=== PATIENT | female | born 1945 | race Caucasian/White ===

== ENCOUNTER → 2020-12-26 | Outpatient (CLI) | payer MEDICARE, OTHER | END | disposition home or self-care (01) | LOC: LAB SHORT 17:16 → LAB 17:16 | DX: N39.0 Urinary tract infection, site not specified (principal) | CPT/HCPCS: 87077; 87086; 87186 ==

== ENCOUNTER → 2021-01-05 | Outpatient (CLI) | payer MEDICARE, OTHER ==
[2021-01-05 07:27] LABS: Source, Urine Clean Catch
[2021-01-05 07:48] LABS: Bacteria Not Seen /hpf; Red Blood Cells, Urine Not Seen /hpf (0-2); Squamous Epithelial Cells Few /hpf (Few); White Blood Cells, Urine Not Seen /hpf (0-5)
== END | disposition home or self-care (01) ==
LOC: LAB 07:18 → LAB SHORT 07:18
PROVIDERS: General Practice
DX: N39.0 Urinary tract infection, site not specified (principal)
CPT/HCPCS: 81015; 87086

== ENCOUNTER → 2021-01-15 | Outpatient (CLI) | payer MEDICARE, OTHER ==
[2021-01-17 10:55] LABS: Candida species (DNA Probe) Negative (NEGATIVE); G. vaginalis (DNA Probe) Negative (NEGATIVE); T. vaginalis (DNA Probe) Negative (NEGATIVE)
== END ==
LOC: LAB 16:20 → LAB SHORT 16:20
PROVIDERS: Family Medicine
DX: N76.0 Acute vaginitis (principal); N39.0 Urinary tract infection, site not specified
CPT/HCPCS: 87086; 87480; 87510; 87660

== ENCOUNTER 2022-07-17 08:53 | Observation (INO) | payer MEDICARE, OTHER ==
[~2022-07-17] VITALS: Ht 157.5 cm; Wt 67.8 kg
[2022-07-17 09:21] LABS: BASOPHILS ABSOLUTE AUTO 0.03 K/mm3 (0.00-0.23); BASOPHILS PERCENT AUTO 0 % (0-2); EOSINOPHILS ABSOLUTE AUTO 0.03 K/mm3 (0.00-0.68); EOSINOPHILS PERCENT AUTO 0 % (0-6); Hematocrit 42.9 % (33.0-51.0); IMMATURE GRAN ABSOLUTE AUTO 0.02 K/mm3 (0.00-0.10); IMMATURE GRAN PERCENT AUTO 0 % (0-1); LYMPHOCYTES ABSOLUTE AUTO 0.96 K/mm3 (0.84-5.20); LYMPHOCYTES PERCENT AUTO 13 % (21-46); MONOCYTES ABSOLUTE AUTO 0.42 K/mm3 (0.16-1.47); MONOCYTES PERCENT AUTO 6 % (4-13); Mean Corpuscular HGB 29.3 pg (26.0-34.0); Mean Corpuscular HGB Conc 32.6 g/dL (31.5-36.5); Mean Corpuscular Volume 90 fL (80-100); Mean Platelet Volume 10.9 fL (9.1-12.4); NEUTROPHILS ABSOLUTE AUTO 5.87 K/mm3 (1.96-9.15); NEUTROPHILS PERCENT AUTO 80 % (41-73); Platelet Count 164 K/mm3 (150-400); RDW Coefficient Variation 13.3 % (11.7-14.2); Red Blood Cell Count 4.78 M/mm3 (3.80-5.20); White Blood Cell Count 7.33 K/mm3 (4.00-11.30)
[2022-07-17 09:37] LABS: Albumin, Blood 3.6 g/dL (3.4-5.0); Bilirubin, Total 0.8 mg/dL (0.1-1.0); Bun/Creatinine Ratio 20.4 (12.0-20.0); Calcium, Blood 9.4 mg/dL (8.5-10.1); Creatinine, Blood 0.69 mg/dL (0.40-1.00); Globulin, Blood 3.5 g/dL (2.2-4.0); Potassium, Blood 3.7 mmol/L (3.5-5.5); Total Protein, Blood 7.1 g/dL (6.4-8.2)
[2022-07-17] MEDS ORDERED: TRAZ50 PO (09:41)
[2022-07-17] MEDS ORDERED: DONEPEZIL HCL10 M1 PO (09:41)
[2022-07-17] MEDS ORDERED: ATOR10 PO (09:42)
[2022-07-17] MEDS ORDERED: SERT100 PO (09:42)
[2022-07-17 10:27] LABS: Source, Urine Straight Cath
[2022-07-17 10:45] LABS: Appearance, Urine Clear (Clear); Bilirubin, Urine Neg (Neg); Blood, Urine 3+ (Neg); Color, Urine Yellow (P-Yellow); Glucose Qualitative, Urine Neg (Neg); Ketones, Urine Neg (Neg); Leukocyte Esterase, Urine Neg (Neg); Nitrite, Urine Neg (Neg); Protein, Urine 1+ (Neg); Urobilinogen, Urine NORM (Normal)
[2022-07-17 11:11] LABS: Bacteria Mod /hpf; Squamous Epithelial Cells Few /hpf (Few)
[2022-07-17 13:11] LABS: Influenza A, PCR NEGATIVE (NEGATIVE); Influenza B, PCR NEGATIVE (NEGATIVE); Resp Syncytial Virus, PCR NEGATIVE (NEGATIVE); SARS-Cov-2 (COVID-19) PCR, MMC NEGATIVE (NEGATIVE)
--- NOTE | 2022-07-17 14:42 | NUR ---
Pt arrived to 348 via wheelchair with family in attendence, pt able to stand and move to bed but very slowly with two person assist, a/ox2-3, follows commands well, is sore from falls at home, called and recieved order for tylenol for pain, lungs are clear on r/a, no cough noted, hrr, no edema noted, ppp+1, cap refill <3sec, vs stable, afebrile, iv site to lac site is clear and patent, btx4, abd flat soft nontender, voids via lamb cath draining yellow urine with sediment, skin c/w/d, saba jessica, son reports he see's much improvement since last night, oriented to room layout and call system, call light in reach.
--- NOTE | 2022-07-17 15:55 | NUR ---
assisted pt to bsc, definately a two person tx as she is very weak, family very attentive, call light in reach.
--- NOTE | 2022-07-17 18:28 | NUR ---
pt got up to bsc, had a xl bm, is having pain from her falls, recieved an order for tramadol, this was given, family in with her, also got her started on antifungal for yuliet area, son states she is much better than when she came in, no further changes, call light in reach.
--- NOTE | 2022-07-18 05:04 | NUR ---
SHIFT SUMMARY; NO ACUTE CHANGES OVERNIGHT. THE PT RESTED IN BED FOR THE ENTIRETY OF THE NIGHT. PT HAS A MERCADO CATHETER IN, IT IS PATENT AND DRAINING TO GRAVITY. THE PT REPORTS SOME GENERAL STIFFNESS FOR WHICH SHE IS MEDICATED WITH TRAMDOL. THE PT IS AXO X2/3 THIS SHIFT. THE PT IS PLEASANT AND COOPERATIVE OF CARE. THE PT IS MILDLY CONFUSED THIS SHIFT WELL. CURRENTLY THE PT IS RESTING IN BED WITH THE BED IN THE LOWEST POSITION AND THE CALL LIGHT AT BEDSIDE. PT DOESNT TOLERATE ROLLING WELL DUE TO GENERALIZED STIFFNESS, NO ATTENDS IN PLACE R/T THIS.
--- NOTE | 2022-07-18 08:00 | NUR ---
pt laying in bed, then up to chair for breakfast, but no appetite, a/ox2-3, pleasant and cooperative with care, follows commands well, denies pain at this time, lungs are clear t/o, a bit dim in bases, resp even and unlabored, no cough noted, hrr, no edema noted, ppp+1, cap refill <3sec, vs stable, afebrile, iv sites to lad and lwrist, sites are clear and patent, btx4 abd flat soft nontender, lamb cath draining yellow urine, with sediment, skin has rash to yuliet area, otherwise c/w/d, ejssica walter, call light in reach.
--- NOTE | 2022-07-18 18:19 | NUR ---
pt is much improved, able to ambulate to the bathroom with one person assist, very poor appetite, needs lots of encouragement. family in to see her lots of support. call light in reach.
--- NOTE | 2022-07-19 04:33 | NUR ---
SHIFT SUMMARY; NO ACUTE CHANGES OVERNIGHT. THE PT IS AXO X3 THIS EVENING, MILD CONFUSION AT TIMES. THE PT WAS ABLE TO AMBULATE TO THE BEDSIDE COMMODE WITH A 1 PERSON ASSIST AND THE FWW. THE PT DENIES ANY PAIN THIS SHIFT BUT DOES REPORT SOME "GENERAL STIFFNESS". THE PT WAS MEDICATED FOR NAUSEA ONCE THIS SHIFT. THE PT DENIES ANY SOB, CHEST PAIN/PRESSURE THIS SHIFT. CURRENTLY THE PT IS RESTING IN BED WITH THE BED IN THE LOWEST POSITION AND THE CALL LIGHT AT BEDSIDE.
--- NOTE | 2022-07-19 18:13 | NUR ---
SHIFT SUMMARY: PT ALERT AND ORIENTED X3. PT REMAINS WEAK AND UNSTEADY ON FEET. PHYSICAL THERAPY WORKING WITH PT. PT WOULD BENEFIT FROM OT WELL. THERE WAS AN EXTENSIVE CONVERSATION WITH FAMILY TODAY ABOUT THE CARE OF THE PT AT HOME WELL THEIR DECISION TO POSSIBLY PLACE PT AT THE [facility]. PT C/O PAIN ONCE THIS SHIFT IN BACK. PROVIDED PRN TRAMADOL AND HAS NOT C/O PAIN SINCE. PT HAS SOME YEAST IN GUERR[place] AREA. DESENEX APPLIED TO HELP WITH REDNESS/ITCHING. BED ALARM ON FOR SAFETY. CALL LIGHT IN REACH. BED IN LOWEST POSITION. WILL CONTINUE TO MONITOR.
--- NOTE | 2022-07-20 05:02 | NUR ---
PLEASANT AND COOPERATIVE, AOX2-3, VSS ON RA, DOES NOT CALL APPROPRIATELY, FORGETFUL, BED ALARM ON. X1 ASSIST WITH WALKER TO TOILET. CONTINENT X2. MEDS TOLERATED WHOLE WITH WATER. CONTINUE PT/OT. NO EVENTS OVER NIGHT.
[2022-07-20 05:42] LABS: BASOPHILS ABSOLUTE AUTO 0.04 K/mm3 (0.00-0.23); BASOPHILS PERCENT AUTO 1 % (0-2); EOSINOPHILS PERCENT AUTO 4 % (0-6); Hemoglobin 12.6 g/dL (11.5-16.0); Mean Corpuscular HGB 28.8 pg (26.0-34.0); Mean Corpuscular HGB Conc 32.3 g/dL (31.5-36.5); Mean Corpuscular Volume 89 fL (80-100); Mean Platelet Volume 11.2 fL (9.1-12.4); Platelet Count 185 K/mm3 (150-400); RDW Standard Deviation 42.6 fL (35.1-46.3); Red Blood Cell Count 4.37 M/mm3 (3.80-5.20); White Blood Cell Count 4.88 K/mm3 (4.00-11.30)
[2022-07-20 05:51] LABS: IMMATURE GRAN ABSOLUTE AUTO 0.02 K/mm3 (0.00-0.10); IMMATURE GRAN PERCENT AUTO 0 % (0-1); LYMPHOCYTES ABSOLUTE AUTO 1.85 K/mm3 (0.84-5.20); LYMPHOCYTES PERCENT AUTO 38 % (21-46); MONOCYTES ABSOLUTE AUTO 0.63 K/mm3 (0.16-1.47); MONOCYTES PERCENT AUTO 13 % (4-13); NEUTROPHILS ABSOLUTE AUTO 2.14 K/mm3 (1.96-9.15); NEUTROPHILS PERCENT AUTO 44 % (41-73)
[2022-07-20 06:02] LABS: Albumin, Blood 2.7 g/dL (3.4-5.0); Albumin/Globulin Ratio 0.8 (0.8-1.8); Bilirubin, Total 0.8 mg/dL (0.1-1.0); Calcium, Blood 8.8 mg/dL (8.5-10.1); Creatinine, Blood 0.53 mg/dL (0.40-1.00); Globulin, Blood 3.3 g/dL (2.2-4.0); Magnesium, Blood 2.2 mg/dL (1.6-2.4); Phosphorus, Blood 3.4 mg/dL (2.5-4.9); Potassium, Blood 3.3 mmol/L (3.5-5.5)
--- NOTE | 2022-07-20 17:52 | NUR ---
SHIFT SUMMARY PATIENT IS A&O X2 FOR MOST OF SHIFT. PATIENT IS A SBA WITH A FWW TO THE BATHROOM. PATIENT ONLY NEEDS OCCASSIONAL VERBAL CUES DUE TO FORGETFULNESS. PATIENT AMBULATING VERY WELL WITH FWW. PATIENT SON AND DAUGHTER IN LAW VISITED THIS AFTERNOON. PT AND OT WORKED WITH PATIENT. RECOMMENDING HOME WITH HOME HEALTH. ST SAW PATIENT THIS AFTERNOON, SEE NOTE. PATIENT TAKEN FOR MRI THIS AFTERNOON. AWAITING RESULTS. PATIENT IS EATING AND DRINKING WELL. PATIENT IS PLEASANT AND COOPERATIVE WITH CARE.
--- NOTE | 2022-07-21 05:35 | NUR ---
AOX2, PLEASANT/COOPERATIVE, VSS. X1 ASSIST TO BATHROOM X4 LAST NIGHT. TOLERATES PO MEDS IN WATER. DOES NOT USE CALL LIGHT. POSSIBLE DC TODAY PER REPORT. VSS. NO EVENTS OVER NIGHT. NO COGNITIVE CHANGES NOTED. SKIN CLEAR.
--- NOTE | 2022-07-21 17:34 | NUR ---
DISCHARGE PATIENT TRANSPORTED VIA WHEELCHAIR TO PRIVATE VEHICLE. DISCHARGE INSTRUCTIONS EXPLAINED TO PATIENT, PATIENT SON AND [id number]. ALL STATED UNDERSTANDING. PACKET SENT WITH PATIENT. BELONGINGS SENT WITH PATIENT. IV REMOVED WITHOUT DIFFICULTY. 4WW DELIVERED BY [facility], THIS WAS SENT WITH PATIENT WELL. NO NEW MEDICATIONS. FOLLOW UP WITH PCP AT [place] SCHEDULED, PATIENT AND FAMILY AWARE.
== END 2022-07-21 18:12 | disposition home health service (06) ==
LOC: ER 08:53 → MEDS 08:54
PROVIDERS: Emergency Medicine; Hospitalist; ADMIT Internal Medicine
DX: F03.90 Unspecified dementia, unspecified severity, without behavioral disturbance, psychotic disturbance, mood disturbance, and anxiety (principal); Z91.81 History of falling; Z66 Do not resuscitate
CPT/HCPCS: 0241U; 36415; 51701; 70450; 70551; 71046; 72125; 72128; 72131; 72170; 80053; 81001; 83735; 84100; 84443; 85025; 87086; 92610; 96361; 96372; 96374-59; 96375; 96376; 97116-CQ; 97162; 97165; 97530; 97530-CQ; 97535; 99285-25; A9270; G0378; J0696; J1650; J2405; J7030; J7120

== ENCOUNTER → 2022-10-05 | Outpatient (CLI) | payer MEDICARE, OTHER ==
[~2022-10-05] MED LIST: ATOR10 PO; DONEPEZIL HCL10 M1 PO; SERT100 PO; TRAZ50 PO
== END | disposition home or self-care (01) ==
LOC: LAB 18:20 → LAB SHORT 18:20
DX: N39.0 Urinary tract infection, site not specified (principal)
CPT/HCPCS: 87086

== ENCOUNTER → 2022-10-12 | Outpatient (CLI) | payer MEDICARE, OTHER | END | disposition home or self-care (01) | LOC: LAB 10:00 → LAB SHORT 10:00 | DX: F44.89 Other dissociative and conversion disorders (principal); R30.0 Dysuria | CPT/HCPCS: 87086 ==

== ENCOUNTER → 2022-10-28 | Outpatient (CLI) | payer MEDICARE, OTHER ==
[2022-10-29 10:02] LABS: Source, Urine Voided
[2022-10-29 10:41] LABS: Appearance, Urine Cloudy (Clear); Bilirubin, Urine Neg (Neg); Blood, Urine 1+ (Neg); Color, Urine Yellow (P-Yellow); Glucose Qualitative, Urine Neg (Neg); Ketones, Urine Neg (Neg); Leukocyte Esterase, Urine 2+ (Neg); Nitrite, Urine Neg (Neg); Protein, Urine 1+ (Neg); Specific Gravity, Urine 1.025 (1.003-1.022); Urobilinogen, Urine NORM (Normal)
[2022-10-29 10:49] LABS: Amorphous Heavy (0-Heavy); Bacteria Many /hpf; Mucus Light (0-Heavy); Squamous Epithelial Cells Few /hpf (Few)
== END | disposition home or self-care (01) ==
LOC: LAB SHORT 21:00 → LAB 21:00 → LAB SHORT 10-29 10:00
PROVIDERS: Family Medicine
DX: N39.0 Urinary tract infection, site not specified (principal)
CPT/HCPCS: 81001; 87086

== ENCOUNTER → 2022-11-02 | Outpatient (CLI) | payer MEDICARE, OTHER ==
[2022-11-02 10:35] LABS: Source, Urine Voided
[2022-11-02 12:20] LABS: Appearance, Urine Clear (Clear); Bilirubin, Urine Neg (Neg); Blood, Urine Neg (Neg); Color, Urine Yellow (P-Yellow); Glucose Qualitative, Urine Neg (Neg); Ketones, Urine Neg (Neg); Leukocyte Esterase, Urine 2+ (Neg); Nitrite, Urine Neg (Neg); Protein, Urine Neg (Neg); Urobilinogen, Urine NORM (Normal)
[2022-11-02 12:29] LABS: Bacteria Mod /hpf; Red Blood Cells, Urine Not Seen /hpf (0-2); Squamous Epithelial Cells Few /hpf (Few)
== END | disposition home or self-care (01) ==
LOC: LAB 09:00 → LAB SHORT 09:00
PROVIDERS: Family Medicine
DX: N39.0 Urinary tract infection, site not specified (principal)
CPT/HCPCS: 81001; 87086

== ENCOUNTER → 2022-11-05 | Outpatient (CLI) | payer MEDICARE, OTHER ==
[~2022-11-05] MED LIST changes: +Seroquel25 MG PO
[2022-11-06 10:01] LABS: Candida species (DNA Probe) Negative (NEGATIVE); G. vaginalis (DNA Probe) Negative (NEGATIVE); T. vaginalis (DNA Probe) Negative (NEGATIVE)
== END | disposition home or self-care (01) ==
LOC: LAB 13:43 → LAB SHORT 13:43
PROVIDERS: Physician Assistant
DX: R30.0 Dysuria (principal)
CPT/HCPCS: 87480; 87510; 87660

== ENCOUNTER 2022-11-09 07:23 | Inpatient (IN) | payer MEDICARE, OTHER ==
[~2022-11-09] VITALS: Ht 160 cm; Wt 77.0 kg
[~2022-11-09 07:23] MED LIST changes: -Seroquel25 MG PO
[2022-11-09 07:50] LABS: BASOPHILS ABSOLUTE AUTO 0.06 K/mm3 (0.00-0.23); BASOPHILS PERCENT AUTO 1 % (0-2); EOSINOPHILS ABSOLUTE AUTO 0.22 K/mm3 (0.00-0.68); EOSINOPHILS PERCENT AUTO 3 % (0-6); Hematocrit 40.8 % (33.0-51.0); Hemoglobin 13.3 g/dL (11.5-16.0); IMMATURE GRAN ABSOLUTE AUTO 0.04 K/mm3 (0.00-0.10); IMMATURE GRAN PERCENT AUTO 0 % (0-1); LYMPHOCYTES ABSOLUTE AUTO 2.37 K/mm3 (0.84-5.20); LYMPHOCYTES PERCENT AUTO 26 % (21-46); MONOCYTES ABSOLUTE AUTO 0.56 K/mm3 (0.16-1.47); MONOCYTES PERCENT AUTO 6 % (4-13); Mean Corpuscular HGB 28.5 pg (26.0-34.0); Mean Corpuscular HGB Conc 32.6 g/dL (31.5-36.5); Mean Corpuscular Volume 87 fL (80-100); Mean Platelet Volume 11.3 fL (9.1-12.4); NEUTROPHILS ABSOLUTE AUTO 5.72 K/mm3 (1.96-9.15); NEUTROPHILS PERCENT AUTO 64 % (41-73); Platelet Count 205 K/mm3 (150-400); RDW Coefficient Variation 13.3 % (11.7-14.2); RDW Standard Deviation 42.5 fL (35.1-46.3); Red Blood Cell Count 4.67 M/mm3 (3.80-5.20); White Blood Cell Count 8.97 K/mm3 (4.00-11.30)
[2022-11-09] MEDS ORDERED: Seroquel25 MG PO (07:57)
[2022-11-09 08:18] LABS: Bun/Creatinine Ratio 33.8 (12.0-20.0); Calcium, Blood 8.9 mg/dL (8.5-10.1); Creatinine, Blood 0.59 mg/dL (0.40-1.00); Potassium, Blood 3.6 mmol/L (3.5-5.5)
[2022-11-09 09:46] VITALS: BP 152/108
[2022-11-09 11:05] LABS: Source, Urine Foley catheter
[2022-11-09 11:41] LABS: Appearance, Urine Clear (Clear); Bilirubin, Urine Neg (Neg); Blood, Urine Neg (Neg); Color, Urine Yellow (P-Yellow); Glucose Qualitative, Urine Neg (Neg); Ketones, Urine Neg (Neg); Leukocyte Esterase, Urine 1+ (Neg); Nitrite, Urine Neg (Neg); Protein, Urine Neg (Neg); Urobilinogen, Urine NORM (Normal)
[2022-11-09 13:59] LABS: Bacteria Rare /hpf; Red Blood Cells, Urine Not Seen /hpf (0-2); Squamous Epithelial Cells Rare /hpf (Few); Transitional Epithelial Cells Rare /hpf (0-Rare); White Blood Cells, Urine 0-2 /hpf (0-5)
[2022-11-09 15:04] VITALS: BP 128/89
--- NOTE | 2022-11-09 15:56 | NUR ---
TRANSFER PT TRANSFERRED TO ROOM 213 DUE TO HX OF DEMENTIA, DAUGHTER STATES PT IS IMPULSIVE AT TIMES GETTING UP ON HER OWN.
--- NOTE | 2022-11-09 18:13 | NUR ---
SHIFT SUMMARY S/P GLF WITH L HIP FX, RESPONDS TO VERBAL STIMULI AND PLEASANTLY CONFUSED, HX OF DEMENTIA PER FAMILY, CAN BE IMPULSIVE PER FAMILY REPORT, SHE WAS MOVED TO A ROOM CLOSER TO THE NURSES STATION AND BED ALARM TURNED ON FOR SAFETY, WAITING FOR ORTHO CONSULT TO EVALUATE FOR POSSIBLE SURGERY, FAMILY UPDATED ON PLAN OF CARE. NO ACUTE EVENTS THIS SHIFT, CALL LIGHT IN REACH, BED ALARM ON, WILL CTM AND REPORT TO ONCOMING NOC RN.
[2022-11-09 19:05] VITALS: BP 144/80
[2022-11-09 19:07] VITALS: BP 144/80
[2022-11-10] VITALS (17 sets, daily range): BP systolic 105–177; BP diastolic 48–97
--- NOTE | 2022-11-10 04:40 | NUR ---
SHIFT SUMMARY A/O TO SELF- BEDREST THROUGHOUT SHIFT DUE TO L HIP FX. VSS. PAIN MANAGED W/ IV PAIN MEDICATION THROUGHOUT SHIFT. MERCADO DRAINING TO GRAVITY. BED ALARM ON FOR SAFETY.
[2022-11-10 05:59] LABS: BASOPHILS ABSOLUTE AUTO 0.06 K/mm3 (0.00-0.23); BASOPHILS PERCENT AUTO 1 % (0-2); EOSINOPHILS ABSOLUTE AUTO 0.03 K/mm3 (0.00-0.68); EOSINOPHILS PERCENT AUTO 0 % (0-6); Hematocrit 41.7 % (33.0-51.0); Hemoglobin 13.6 g/dL (11.5-16.0); IMMATURE GRAN ABSOLUTE AUTO 0.21 K/mm3 (0.00-0.10); IMMATURE GRAN PERCENT AUTO 2 % (0-1); LYMPHOCYTES ABSOLUTE AUTO 1.24 K/mm3 (0.84-5.20); LYMPHOCYTES PERCENT AUTO 12 % (21-46); MONOCYTES ABSOLUTE AUTO 0.69 K/mm3 (0.16-1.47); MONOCYTES PERCENT AUTO 7 % (4-13); Mean Corpuscular HGB 28.3 pg (26.0-34.0); Mean Corpuscular HGB Conc 32.6 g/dL (31.5-36.5); Mean Corpuscular Volume 87 fL (80-100); NEUTROPHILS ABSOLUTE AUTO 8.36 K/mm3 (1.96-9.15); NEUTROPHILS PERCENT AUTO 79 % (41-73); RDW Coefficient Variation 13.2 % (11.7-14.2); RDW Standard Deviation 42.2 fL (35.1-46.3); White Blood Cell Count 10.59 K/mm3 (4.00-11.30)
[2022-11-10 07:10] LABS: Mean Platelet Volume 11.5 fL (9.1-12.4); Platelet Count 157 K/mm3 (150-400)
[2022-11-10 07:22] LABS: Albumin, Blood 3.4 g/dL (3.4-5.0); Albumin/Globulin Ratio 0.9 (0.8-1.8); Bilirubin, Total 1.2 mg/dL (0.1-1.0); Bun/Creatinine Ratio 33.5 (12.0-20.0); Calcium, Blood 8.9 mg/dL (8.5-10.1); Creatinine, Blood 0.48 mg/dL (0.40-1.00); Globulin, Blood 3.6 g/dL (2.2-4.0); Potassium, Blood 4.1 mmol/L (3.5-5.5)
--- NOTE | 2022-11-10 16:52 | NUR ---
SUMMARY PT HAS BEEN VERY PAINFUL, RESTLESS T/O MOST OF SHIFT. MEDICATED PER ORDERS FOR PAIN T/O DAY. MEDICATED OT PER ORDERS FOR ITCHING W/IV BENADRYL. PT SLEPT APPROXIMATELY 30 MINUTES THIS AFTERNOON AND IS DOZING CURRENTLY. SON AND DAUGHTER BEDSIDE. BED ALARM ON FOR SAFETY. CALL LIGHT IN REACH.
--- NOTE | 2022-11-10 18:08 | NUR ---
PT TO PRE OP DAUGHTER ACCOMPANIED.
--- NOTE | 2022-11-10 19:36 | NUR ---
11/10/221935 Essence Rodriguez PT ENTERED OR WITH MERCADO CATHETER
--- NOTE | 2022-11-10 21:25 | NUR ---
PACU NURSE LORENA CALLED REPORTING THAT PT WAS PULLING AT LINES AND NOT ALLOWING STAFF TO PUT PULSE OXIMETRY ON. ADVISED A CALL TO THE PROVIDER. DR. THOMAS PUSHPINGER CALLED AND ORDER FOR OT DOSE OF HALDOL 2.5 MG Q1 PRN OBTAINED. PROVIDER REPORTED TO GIVE ANOTHER DOSE IF NECESSARY.
--- NOTE | 2022-11-10 23:07 | NUR ---
ARRIVAL: PT ARRIVED TO THE UNIT AT APPROXIMATELY 2134 VIA BED WITH PACU NURSE LORENA. BEDSIDE REPORT GIVEN. PT IRRITABLE AND PULLING AT OXYGEN TUBING AND LINES. NONPHARMACOLOGICAL METHODS ATTEMPTED, SUCH REPOSITIONING AND DISTRACTION. VITALS TAKEN. OXYGEN APPLIED TO PT, CURRENTLY ON 3L 02 VIA NC TO KEEP OXYGEN SATURATION ABOVE 92%. PT DOES NOT APPEAR TO BE IN ANY DISTRESS AT THIS TIME. CALL LIGHT WITHIN REACH. MERCADO IN PLACE. PATENT AND DRAINING TO GRAVITY.
--- NOTE | 2022-11-11 04:08 | NUR ---
SHIFT SUMMARY: PODx1 RIGHT HIP RODDING WITH DR. MANNING. X2 DRESSINGS TO THE L HIP C/D/I AT THIS TIME. PT TAKING IN MINIMAL AMOUNTS OF ORAL FLUIDS. FLUIDS CONTINUE TO INFUSE. TYSON OUTPUT FROM MERCADO. PT REMAINS CONFUSED AT TIMES WITH NEED OF REDIRECTION, WHICH IS SOMETIMES EFFECTIVE. PAIN WELL MANAGED WITH PO PAIN MEDICATION. PT REMAINS VERY TIRED SINCE SURGERY. OXYGEN SATURATION IMPROVED SINCE ARRIVAL TO FLOOR AND IS REMAINING ABOVE 92% ON RA AT THIS TIME. PT RESTING AT THIS TIME WITH CALL LIGHT IN REACH. WILL GIVE REPORT TO DAY TIME RN.
[2022-11-11 07:14] VITALS: BP 130/91
[2022-11-11 16:01] VITALS: BP 109/46
--- NOTE | 2022-11-11 16:20 | NUR ---
TURNED OVER CARE TO BISMARK Hidalgo RN.
--- NOTE | 2022-11-11 18:58 | NUR ---
SHIFT SUMMARY PT A&OX1/DAUGHTER AT BEDSIDE, ANNABEL PO/MEAL ASSIST/MEDS WITH APPLESAUCE, MERCADO PATENT & DRAINING YELLOW URINE/ STAT LOCK ON/OFF FLOOR, PAIN MANAGED, REPOSITIONED/PHYSICAL THERAPY EXERCISES ENCOURAGED, VSS/RA/TCDB. POD1 L HIP PINNING, AQUACEL APPLIED/CDI, TEDS/SCDS. WILL REPORT TO ONCOMING LAVERN MAX.
[2022-11-11 19:18] VITALS: BP 118/51
[2022-11-11 23:48] VITALS: BP 123/54
[2022-11-12 03:59] VITALS: BP 114/55
[2022-11-12 04:25] LABS: BASOPHILS ABSOLUTE AUTO 0.03 K/mm3 (0.00-0.23); BASOPHILS PERCENT AUTO 0 % (0-2); EOSINOPHILS PERCENT AUTO 1 % (0-6); Hematocrit 31.1 % (33.0-51.0); Hemoglobin 10.1 g/dL (11.5-16.0); IMMATURE GRAN ABSOLUTE AUTO 0.08 K/mm3 (0.00-0.10); IMMATURE GRAN PERCENT AUTO 1 % (0-1); LYMPHOCYTES ABSOLUTE AUTO 2.27 K/mm3 (0.84-5.20); LYMPHOCYTES PERCENT AUTO 28 % (21-46); MONOCYTES PERCENT AUTO 9 % (4-13); Mean Corpuscular HGB 28.4 pg (26.0-34.0); Mean Corpuscular HGB Conc 32.5 g/dL (31.5-36.5); Mean Corpuscular Volume 87 fL (80-100); Mean Platelet Volume 11.3 fL (9.1-12.4); NEUTROPHILS ABSOLUTE AUTO 5.04 K/mm3 (1.96-9.15); NEUTROPHILS PERCENT AUTO 61 % (41-73); Platelet Count 146 K/mm3 (150-400); RDW Coefficient Variation 13.2 % (11.7-14.2); RDW Standard Deviation 42.1 fL (35.1-46.3); Red Blood Cell Count 3.56 M/mm3 (3.80-5.20); White Blood Cell Count 8.22 K/mm3 (4.00-11.30)
--- NOTE | 2022-11-12 04:26 | NUR ---
SHIFT SUMMARY POD2 LEFT HIP NAILING, DRESSING C/D/I. SENSATION AND CIRCULATION REMAIN INTACT. VSS. PT SLEPT WELL T/O THE NIGHT. MEDICATED FOR PAIN WTIH OXY AND TYLENOL WITH GOOD RELIEF. PT REPOSITIONED TOLLERATED. MINIMAL PO INTAKE NOTED DESPITE ONGOING ENCOURAGEMENT. GOOD URINE OUTPUT NOTED, MODERATE AMOUNT OF PINK SEDIMENT NOTED. PT WAS VERY PLEASENT T/O THE NIGHT. NO ACUTE EVENTS NOTED. PLAN TO REMOVE MERCADO THIS AM, PT TO CONTINUE TO WORK WITH PT/OT AND D/C TO SNF. THE PATIENT IS CURRENTLY RESTING, IN NO DISTRESS, CALL LIGHT IN REACH
[2022-11-12 05:03] LABS: Bun/Creatinine Ratio 23.7 (12.0-20.0); Calcium, Blood 8.6 mg/dL (8.5-10.1); Creatinine, Blood 0.55 mg/dL (0.40-1.00); Potassium, Blood 3.3 mmol/L (3.5-5.5)
[2022-11-12 07:16] VITALS: BP 123/68
[2022-11-12 12:56] LABS: SARS-Cov-2 (COVID-19) PCR, MMC NEGATIVE (NEGATIVE)
[2022-11-12 15:37] VITALS: BP 114/53
--- NOTE | 2022-11-12 17:39 | NUR ---
REPORT CALLED TO ETHEL SHEPARD RN.
--- NOTE | 2022-11-12 17:41 | NUR ---
SHIFT SUMMARY PT POD2 FOR A L HIP PINNING WITH AN AQUACEL DRESSING IN PLACE THAT WAS CDI. PT WAS A&OX1 AND NEEDED REORIENTATION T/O SHIFT. PT WAS TOLERATING PO, MEDS TAKEN WITH APPLESAUCE, VSS, VOIDING WITH MAX ASSIST TO BEDSIDE COMMODE, PAIN MANAGED WITH TYLENOL AND OXY. PT PLAN TO GO TO SKILLED REHAB THIS EVENING. WILL CONTINUE TO MONITOR AND REPORT CHANGES.
--- NOTE | 2022-11-12 19:00 | NUR ---
PT LEFT WITH TRANSPORT TO GO TO [facility]
== END 2022-11-12 18:57 | DRG 482 ==
LOC: ER 07:23 → SURS 07:24
PROVIDERS: Emergency Medicine; Orthopaedic Surgery; ADMIT Internal Medicine
PROC: 0QH736Z Insertion of Intramedullary Internal Fixation Device into Left Upper Femur, Percutaneous Approach (ICD-10-PCS; principal; 2022-11-10 18:30)
DX: S72.142A Displaced intertrochanteric fracture of left femur, initial encounter for closed fracture (principal); I10 Essential (primary) hypertension; F03.90 Unspecified dementia, unspecified severity, without behavioral disturbance, psychotic disturbance, mood disturbance, and anxiety; E78.5 Hyperlipidemia, unspecified; Z66 Do not resuscitate; M16.0 Bilateral primary osteoarthritis of hip; K21.9 Gastro-esophageal reflux disease without esophagitis; E87.6 Hypokalemia; Z20.822 Contact with and (suspected) exposure to COVID-19; W18.30XA Fall on same level, unspecified, initial encounter; Z79.899 Other long term (current) drug therapy; Z79.02 Long term (current) use of antithrombotics/antiplatelets
CPT/HCPCS: 36415; 73502; 80048; 80053; 81001; 85025; 87086; 93005; 93010; 96374; 96375; 96376; 97110; 97162; 97166; 97530; 99285-25; A9270; C1713; C1769; G0378; J0690; J1100; J1170; J1200; J1630; J1650; J1885; J2270; J2405; J2704; J3010; J7030; J7120; U0002

== ENCOUNTER → 2023-01-31 | Outpatient (CLI) | payer MEDICARE, OTHER ==
[~2023-01-31] MED LIST changes: +Seroquel25 MG PO
[2023-01-31 10:07] LABS: Source, Urine Clean Catch
[2023-01-31 10:45] LABS: Appearance, Urine Cloudy (Clear); Bilirubin, Urine Neg (Neg); Blood, Urine 1+ (Neg); Color, Urine Yellow (P-Yellow); Glucose Qualitative, Urine Neg (Neg); Ketones, Urine 1+ (Neg); Leukocyte Esterase, Urine 1+ (Neg); Nitrite, Urine Neg (Neg); Protein, Urine 2+ (Neg); Specific Gravity, Urine 1.015 (1.003-1.022); Urobilinogen, Urine 1+ (Normal)
[2023-01-31 10:56] LABS: Amorphous Heavy (0-Heavy); Mucus Heavy (0-Heavy)
[2023-01-31 10:57] LABS: Bacteria Mod /hpf; Calcium Oxalate Crystals Few /hpf; Squamous Epithelial Cells Many /hpf (Few)
== END ==
LOC: LAB SHORT 10:06 → LAB 10:06
PROVIDERS: Nurse Practitioner Family
DX: N39.0 Urinary tract infection, site not specified (principal)
CPT/HCPCS: 81001; 87077; 87086; 87186